=== PATIENT | male | born 1960 | race Caucasian/White ===

== ENCOUNTER → 2019-03-14 09:12 | Outpatient (CLI) | payer OTHER, SELFPAY ==
--- NOTE | 2019-03-14 | DI.RAD.S_ITS ---
PROCEDURE: XR KUB INDICATIONS: Calculus of kidney TECHNIQUE: One view of the abdomen acquired. COMPARISON: [facility], CR, XR ABDOMEN 1 VIEW, 03/10/2019, 12:19. FINDINGS: Surgical changes and devices: None. Bowel: Bowel gas pattern is normal. Soft tissues: Left abdominal calcifications are unchanged since 03/10/19 Bones: No suspicious bony lesions. IMPRESSION: Unchanged left sided calcifications since 03/10/19. Dictated by: Chris Corley M.D. on 03/14/2019 at 12:30 Approved by: Chris Corley M.D. on 03/14/2019 at 12:37
== END ==
PROVIDERS: Visit Provider Specialist
DX: N20.0 Calculus of kidney (principal)
CPT/HCPCS: 74018

== ENCOUNTER → 2019-04-27 11:42 | Outpatient (CLI) | payer OTHER, SELFPAY ==
--- NOTE | 2019-04-27 | DI.RAD.S_ITS ---
PROCEDURE: XR KUB INDICATIONS: KIDNEY STONES TECHNIQUE: One view of the abdomen acquired. COMPARISON: [facility], , XR KUB, 03/14/2019, 9:22. FINDINGS: Surgical changes and devices: None. Bowel: Bowel gas pattern is normal. Soft tissues: No suspicious abdominal calcifications. Visualized solid organ contours appear normal in size. Bones: No suspicious bony lesions. IMPRESSION: No urinary tract stone identified. A prior CT KUB is not available for review however 2 calcifications seen to the left of midline 03/14/19 are no longer visualized. Dictated by: Roosevelt Upton M.D. on 04/27/2019 at 12:58 Approved by: Roosevelt Upton M.D. on 04/27/2019 at 12:58
== END ==
PROVIDERS: Family Provider Family Medicine; PCP Family Medicine; Visit Provider Specialist
DX: N20.0 Calculus of kidney (principal)
CPT/HCPCS: 74018

== ENCOUNTER → 2019-05-05 10:59 | Outpatient (CLI) | payer OTHER, SELFPAY ==
--- NOTE | 2019-05-05 | DI.RAD.S_ITS ---
PROCEDURE: XR KUB INDICATIONS: Calculus of kidney TECHNIQUE: One view of the abdomen acquired. COMPARISON: [facility], CR, XR KUB, 04/27/2019, 11:48. FINDINGS: Surgical changes and devices: None. Bowel: Bowel gas pattern is nonobstructive.. Soft tissues: No suspicious abdominal calcifications. Visualized solid organ contours appear normal in size. Bones: No suspicious bony lesions. IMPRESSION: No gross renal calcification is seen. No evidence of bowel obstruction or gross free air. Dictated by: Mat Owens M.D. on 05/05/2019 at 20:17 Approved by: Mat Owens M.D. on 05/05/2019 at 20:19
== END ==
PROVIDERS: Family Provider Family Medicine; PCP Family Medicine; Visit Provider Specialist
DX: N20.0 Calculus of kidney (principal)
CPT/HCPCS: 74018

== ENCOUNTER → 2019-05-19 13:52 | Outpatient (CLI) | payer OTHER, SELFPAY ==
--- NOTE | 2019-05-19 | DI.RAD.S_ITS ---
PROCEDURE: XR KUB INDICATIONS: KIDNEY STONE TECHNIQUE: One view of the abdomen acquired. COMPARISON: [facility], , XR KUB, 05/05/2019, 11:04. FINDINGS: Surgical changes and devices: None. Bowel: Bowel gas pattern is normal. Soft tissues: 3 mm possible calcification projecting in the region of the left kidney although could be debris in colon. Unchanged left-sided pelvic phleboliths Bones: No suspicious bony lesions. IMPRESSION: Possible left sided nephrolithiasis measuring up to 3 mm however technically indeterminate as above (furthermore this was not visible on the prior study) Dictated by: Chris Corley M.D. on 05/19/2019 at 16:05 Approved by: Chris Corley M.D. on 05/19/2019 at 16:10
== END ==
PROVIDERS: PCP Family Medicine; Visit Provider Specialist
DX: N20.0 Calculus of kidney (principal)
CPT/HCPCS: 74018